=== PATIENT | female | born 1945 | race Caucasian/White ===

== ENCOUNTER → 2017-02-07 | Outpatient (CLI) | payer MEDICARE ==
[~2017-02-07] MED LIST: AMINOPHYLLINE 25 MG/ML, 10ML ONE; AMLO5TAB2 PO; BP MED UNKNOWN; BP MED UNKNOWN PO; CARB200T4 PO; HYDR-3240 PO; LEVO50TA5 PO; LISI40TA PO; NITR100C PO; REGADENOSON 0.4 MG/5 ML SYRINGE ONE; SIMV10TA3 PO
== END | disposition home or self-care (01) ==
LOC: CFH 11:57
PROVIDERS: ATTEND Internal Medicine Cardiovascular Disease
DX: R94.31 Abnormal electrocardiogram [ECG] [EKG] (principal); I10 Essential (primary) hypertension
CPT/HCPCS: 78452; 93017; A9502; J0280; J2785

== ENCOUNTER 2018-02-11 10:12 | Emergency (ER) | payer MEDICARE, MEDICAID ==
[~2018-02-11] VITALS: Ht 157.5 cm; Wt 69.0 kg
[~2018-02-11 10:12] MED LIST changes: -AMINOPHYLLINE 25 MG/ML, 10ML ONE; +ASPI-621 PO; +CARB100T4 PO; +CHOL200059 PO; +HYDR-3307 PO; +LEVO150T5 PO; +LISI-170 PO; -REGADENOSON 0.4 MG/5 ML SYRINGE ONE; +SERT100T5 PO; +SIMV40TA3 PO
[2018-02-11 10:14] VITALS: BP 173/90
[2018-02-11 11:19] LABS: MICROSCOPIC INDICATED
[2018-02-11 11:20] LABS: CULTURE INDICATED? YES
[2018-02-11] MEDS ORDERED: MORPHINE SULFATE 4 MG/ML, 1ML IVPush PRN (11:30)
[2018-02-11] MEDS ORDERED: SODIUM CHLORIDE FLUSH 10ML SYR IVF ONE (11:30)
[2018-02-11] MEDS ORDERED: CEFTRIAXONE PMX 1GM/50ML 50 ML IVPB ONE (11:30)
[2018-02-11] MEDS ORDERED: ONDANSETRON ODT 4 MG PO ONE (11:30)
[2018-02-11] MEDS ORDERED: CEFTRIAXONE PMX 1GM/50ML 50 ML ONE (11:40)
[2018-02-11] MEDS ORDERED: MORPHINE SULFATE 4 MG/ML, 1ML ONE (11:40)
[2018-02-11] MEDS ORDERED: ONDANSETRON 2MG/ML, 2ML ONE (11:40)
[2018-02-11 11:49] LABS: BASOPHILS # (AUTO) 0.02 x10^3/uL (0-0.1); BASOPHILS % (AUTO) 1 % (0-1); EOSINOPHILS # (AUTO) 0.13 x10^3/uL (0-0.4); EOSINOPHILS % (AUTO) 3 % (1-7); LYMPHOCYTES # (AUTO) 1.57 x10^3/uL (1-3.4); LYMPHOCYTES % (AUTO) 38 % (22-44); MD NO; MEAN CORPUSCULAR HEMOGLOBIN 28.6 pg (27.0-34.8); MEAN CORPUSCULAR HGB CONC 32.6 g/dL (32.4-35.8); MEAN CORPUSCULAR VOLUME 87.9 fL (80-100); MEAN PLATELET VOLUME 6.7 fL (7.4-10.4); MONOCYTES # (AUTO) 0.26 x10^3/uL (0.2-0.8); MONOCYTES % (AUTO) 6 % (2-9); NEUTROPHILS # (AUTO) 2.16 x10^3/uL (1.8-6.8); NEUTROPHILS % (AUTO) 52 % (42-75); PLATELET COUNT 282 x10^3/uL (130-400); RED BLOOD COUNT 4.26 x10^6/uL (3.82-5.3); RED CELL DISTRIBUTION WIDTH 14.4 % (9.6-15.2)
[2018-02-11 12:00] LABS: ALANINE AMINOTRANSFERASE 20 U/L (12-78); ALBUMIN 3.6 g/dL (3.4-5.0); ANION GAP 8 mmol/L (5-15); CALCIUM 8.2 mg/dL (8.5-10.1); CHLORIDE 109 mmol/L (98-107)
[2018-02-11 12:02] LABS: ALKALINE PHOSPHATASE 89 U/L (45-117); BILIRUBIN,TOTAL 0.4 mg/dL (0.2-1.0); CREATININE 0.63 mg/dL (0.55-1.02)
[2018-02-11] MEDS ORDERED: OMNIPAQUE 350 MG/ML, 100ML BOTTLE ONE (13:09)
== END 2018-02-11 14:24 | disposition home or self-care (01) ==
LOC: ED 12:40
DX: N30.01 Acute cystitis with hematuria (principal); E03.9 Hypothyroidism, unspecified; I10 Essential (primary) hypertension; Z90.710 Acquired absence of both cervix and uterus
CPT/HCPCS: 36415; 74177; 80053; 81001; 83690; 85025; 87077; 87086; 96374; 96375; 99285; J0696; Q0162; Q9967; 87186

== ENCOUNTER 2019-05-22 11:01 | Emergency (ER) | payer MEDICARE, OTHER ==
[~2019-05-22] VITALS: Ht 154.9 cm; Wt 71.0 kg
[~2019-05-22 11:01] MED LIST changes: +AMLO-150 PO; -AMLO5TAB2 PO; -ASPI-621 PO; +ASPI81TA45 PO; +METH4TAB2 PO; +METH750T2 PO; +SERT100T32 PO; -SERT100T5 PO
[2019-05-22] MEDS ORDERED: ONDANSETRON 2MG/ML, 2ML IVPush ONE ×2 (11:30→13:00)
[2019-05-22] MEDS ORDERED: SODIUM CHLORIDE FLUSH 10ML SYR IVF ONE ×2 (11:30→13:00)
[2019-05-22 12:16] LABS: BASOPHILS % (AUTO) 0 % (0-1); EOSINOPHILS # (AUTO) 0.01 x10^3/uL (0-0.4); EOSINOPHILS % (AUTO) 0 % (1-7); LYMPHOCYTES % (AUTO) 13 % (22-44); MD NO; MEAN CORPUSCULAR HEMOGLOBIN 28.8 pg (27.0-34.8); MEAN CORPUSCULAR HGB CONC 32.4 g/dL (32.4-35.8); MEAN PLATELET VOLUME 7.2 fL (7.4-10.4); MONOCYTES # (AUTO) 0.26 x10^3/uL (0.2-0.8); MONOCYTES % (AUTO) 4 % (2-9); NEUTROPHILS % (AUTO) 82 % (42-75); PLATELET COUNT 283 x10^3/uL (130-400); RED BLOOD COUNT 4.84 x10^6/uL (3.82-5.3); RED CELL DISTRIBUTION WIDTH 14.2 % (9.6-15.2)
--- NOTE | 2019-05-22 12:18 | NUR ---
[employer]: PT TO ROOM FROM LOBBY VIA W/C
[2019-05-22 12:19] LABS: ALANINE AMINOTRANSFERASE 24 U/L (12-78); ALBUMIN 4.3 g/dL (3.4-5.0); ANION GAP 6 mmol/L (5-15); CALCIUM 8.6 mg/dL (8.5-10.1); CHLORIDE 108 mmol/L (98-107)
[2019-05-22 12:22] LABS: ALKALINE PHOSPHATASE 81 U/L (45-117); BILIRUBIN,TOTAL 0.6 mg/dL (0.2-1.0); CREATININE 0.83 mg/dL (0.55-1.02); TOTAL PROTEIN 7.6 g/dL (6.4-8.2)
--- NOTE | 2019-05-22 12:27 | NUR ---
PT STATES SHE WENT TO THE DOCTOR MAY 18 AND PUT ON ANTIBIOTIC FOR UTI. PT STATES SHE TOOK ANTIBIOTIC FOR ONE DAY AND THEN HASN'T SINCE THEN BECAUSE VOMITING AND DIZZY. PT AMBULATED TO BATHROOM WITH ASSISTANCE FOR URINE SAMPLE
[2019-05-22] MEDS ORDERED: ONDANSETRON 2MG/ML, 2ML ONE (12:41)
[2019-05-22] MEDS ORDERED: KETOROLAC 30 MG/1 ML ONE (12:49)
[2019-05-22 12:54] LABS: CULTURE INDICATED? YES; MICROSCOPIC INDICATED
[2019-05-22] MEDS ORDERED: KETOROLAC 30 MG/1 ML IVPush ONE (13:00)
--- NOTE | 2019-05-22 13:19 | NUR ---
AFTER MEDICATED PER ORDERS PT TO CT
[2019-05-22 14:55] VITALS: BP 124/55
[2019-05-22] MEDS ORDERED: CEFTRIAXONE PMX 1GM/50ML 50 ML IV ONE (15:00)
[2019-05-22] MEDS ORDERED: CEFTRIAXONE PMX 1GM/50ML 50 ML ONE (15:07)
--- NOTE | 2019-05-22 15:12 | NUR ---
IV ANTIBIOTICS INFUSING AND PT SIPPING ON WATER
== END 2019-05-22 16:19 | disposition home or self-care (01) ==
LOC: ED 13:55
DX: N30.00 Acute cystitis without hematuria (principal); R11.2 Nausea with vomiting, unspecified; E03.9 Hypothyroidism, unspecified; E78.00 Pure hypercholesterolemia, unspecified; I10 Essential (primary) hypertension; Z87.891 Personal history of nicotine dependence; Z90.710 Acquired absence of both cervix and uterus
CPT/HCPCS: 36415; 74176; 80053; 81001; 83605; 83690; 85025; 87040; 87086; 93005; 96365; 96375; 99284; J0696; J1885; J2405

== ENCOUNTER 2019-12-24 09:10 | Emergency (ER) | payer MEDICARE, OTHER ==
[~2019-12-24] VITALS: Ht 157.5 cm; Wt 71.0 kg
[~2019-12-24 09:10] MED LIST changes: -HYDR-3307 PO; +HYDR-36 PO; +SIMV10TA18 PO; -SIMV10TA3 PO; +SIMV40TA20 PO; -SIMV40TA3 PO
[2019-12-24 09:19] VITALS: BP_DIAS 67
--- NOTE | 2019-12-24 09:34 | NUR ---
74 Y/O FEMALE PRESENTS TO ED WITH C/O ABDOMINAL PAIN. PER PT "I WAS ON ABX, MACROBID, FOR THE LAST WEEK. I FINISHED THEM A WEEK AGO. I CALLED MY DR FRIDAY AND THEY NEVER CALLED ME BACK. I'M JUST IN A LOT OF PAIN STILL." NO C/O N/V/D, TRAUMA, SYNCOPE, CP, SOB.
--- NOTE | 2019-12-24 09:34 | NUR ---
PT AMBULATORY WITH STEADY GAIT TO BATHROOM TO PROVIDE UA
[2019-12-24] MEDS ORDERED: ONDANSETRON ODT 4 MG PO ONE (10:00)
[2019-12-24] MEDS ORDERED: HYDROcodone/APAP 5/325 TABLET PO ONE (10:00)
--- NOTE | 2019-12-24 10:04 | NUR ---
UA SENT TO LAB.
[2019-12-24] MEDS ORDERED: ONDANSETRON ODT 4 MG ONE (10:11)
[2019-12-24] MEDS ORDERED: HYDROcodone/APAP 5/325 TABLET ONE (10:12)
--- NOTE | 2019-12-24 10:27 | NUR ---
PT RESTING ON GURNEY. PT AWARE OF POC. GRANDDAUGHTER BEDSIDE. NO NEEDS REQUESTED AT THIS TIME.
[2019-12-24 10:40] LABS: CULTURE INDICATED? YES; MICROSCOPIC INDICATED
[2019-12-24 10:45] VITALS: BP_SYST 135
--- NOTE | 2019-12-24 10:46 | NUR ---
PT BACK FROM IMAGING.
[2019-12-24 10:50] LABS: BASOPHILS # (AUTO) 0.03 x10^3/uL (0-0.1); BASOPHILS % (AUTO) 1 % (0-1); EOSINOPHILS # (AUTO) 0.09 x10^3/uL (0-0.4); EOSINOPHILS % (AUTO) 2 % (1-7); LYMPHOCYTES # (AUTO) 1.63 x10^3/uL (1-3.4); LYMPHOCYTES % (AUTO) 39 % (22-44); MD NO; MEAN CORPUSCULAR HEMOGLOBIN 28.9 pg (27.0-34.8); MEAN CORPUSCULAR HGB CONC 32.7 g/dL (32.4-35.8); MEAN CORPUSCULAR VOLUME 88.5 fL (80-100); MEAN PLATELET VOLUME 7.4 fL (7.4-10.4); MONOCYTES # (AUTO) 0.27 x10^3/uL (0.2-0.8); MONOCYTES % (AUTO) 7 % (2-9); NEUTROPHILS # (AUTO) 2.14 x10^3/uL (1.8-6.8); NEUTROPHILS % (AUTO) 51 % (42-75); PLATELET COUNT 264 x10^3/uL (130-400); RED BLOOD COUNT 4.35 x10^6/uL (3.82-5.3); RED CELL DISTRIBUTION WIDTH 14.8 % (9.6-15.2)
[2019-12-24 10:57] LABS: CHLORIDE 109 mmol/L (98-107)
[2019-12-24 10:58] LABS: ALBUMIN 3.8 g/dL (3.4-5.0); ANION GAP 5 mmol/L (5-15); CALCIUM 8.9 mg/dL (8.5-10.1)
[2019-12-24 11:01] LABS: ALANINE AMINOTRANSFERASE 24 U/L (12-78); ALKALINE PHOSPHATASE 105 U/L (45-117); BILIRUBIN,TOTAL 0.5 mg/dL (0.2-1.0); CREATININE 0.91 mg/dL (0.55-1.02); TOTAL PROTEIN 7.3 g/dL (6.4-8.2)
[2019-12-24] MEDS ORDERED: CEFTRIAXONE PMX 1GM/50ML 50 ML ONE (11:07)
--- NOTE | 2019-12-24 11:20 | NUR ---
PIV ESTABLISHED. MEDICATION ADMINISTERED PER ORDER. NADN.
[2019-12-24] MEDS ORDERED: CEFTRIAXONE PMX 1GM/50ML 50 ML IV ONE (11:30)
--- NOTE | 2019-12-24 11:49 | NUR ---
Patient/Caregiver given discharge instructions and they have confirmed that they understand the instructions. Patient ambulatory with steady gait. PIV D/C WITH TIP INTACT. PRESSURE DRESSING APPLIED. PT LEFT WITH ALL PERSONAL BELONGINGS.
== END 2019-12-24 11:51 | disposition home or self-care (01) ==
LOC: ED 11:45
DX: N10 Acute pyelonephritis (principal); R10.30 Lower abdominal pain, unspecified; I10 Essential (primary) hypertension; E78.00 Pure hypercholesterolemia, unspecified; E03.9 Hypothyroidism, unspecified
CPT/HCPCS: 36415; 74176; 80053; 81001; 83690; 85025; 87086; 96365; 99284; J0696; Q0162

== ENCOUNTER 2020-06-10 21:44 | Inpatient (IN) | payer MEDICARE ==
[~2020-06-10] VITALS: Ht 157.5 cm; Wt 76.2 kg
[~2020-06-10 21:44] MED LIST changes: +HYDR-3246 PO; -HYDR-36 PO
--- NOTE | 2020-06-10 21:47 | NUR ---
PT BIB [facility] AFTER PT WAS WASHING HER BATH MAT AND WHILE SENT OVER FELT HER L HIP POP OUT AND THEN COULD NOT WALK. PT SOMETIMES USES A CANE BASELINE. PT DENIES ANY TRAUMA TO AREA, DENIES ABILITY TO WALK. STATES PAIN IS ALL OVER HIP RUNNING DOWN LEG AND UP BACK. SENSATION AND GROSS NEURO INTACT, LIMITED RANGE OF MOTION SECONDARY TO PAIN. PT NAD, P/W/D. CMS INTACT. WCTM. FAIZAN AGUIRRE AT BS FOR EVAL AND POC PT PLACED ON BP/SPO2 MONITORING
[2020-06-10 22:13] LABS: BASOPHILS # (AUTO) 0.02 x10^3/uL (0-0.1); BASOPHILS % (AUTO) 1 % (0-1); EOSINOPHILS # (AUTO) 0.12 x10^3/uL (0-0.4); EOSINOPHILS % (AUTO) 2 % (1-7); LYMPHOCYTES # (AUTO) 1.98 x10^3/uL (1-3.4); LYMPHOCYTES % (AUTO) 38 % (22-44); MD NO; MEAN CORPUSCULAR HEMOGLOBIN 28.6 pg (27.0-34.8); MEAN CORPUSCULAR HGB CONC 32.6 g/dL (32.4-35.8); MEAN PLATELET VOLUME 6.8 fL (7.4-10.4); MONOCYTES # (AUTO) 0.25 x10^3/uL (0.2-0.8); MONOCYTES % (AUTO) 5 % (2-9); NEUTROPHILS # (AUTO) 2.91 x10^3/uL (1.8-6.8); NEUTROPHILS % (AUTO) 55 % (42-75); PLATELET COUNT 307 x10^3/uL (130-400); RED BLOOD COUNT 4.51 x10^6/uL (3.82-5.3); RED CELL DISTRIBUTION WIDTH 14.8 % (9.6-15.2)
--- NOTE | 2020-06-10 22:21 | NUR ---
PT TO RADIOLOGY VIA CORIE BUSBY, CONDITION UNCHANGED.
[2020-06-10 22:25] LABS: ALBUMIN 3.8 g/dL (3.4-5.0); ANION GAP 8 mmol/L (5-15); CALCIUM 8.2 mg/dL (8.5-10.1); CHLORIDE 111 mmol/L (98-107)
[2020-06-10] MEDS ORDERED: MORPHINE SULFATE 4 MG/ML, 1ML ONE ×2 (22:35→23:41)
[2020-06-10] MEDS: MORPHINE SULFATE 4 MG/ML, 1ML IVPush PRN ×2 (22:40→23:45)
--- NOTE | 2020-06-10 22:52 | NUR ---
PT MEDICATED PER MAR FOR PAIN. RESTING IN [facility], NO CHANGE IN CONDITION, WCTM.
--- NOTE | 2020-06-10 23:30 | NUR ---
PT TO CT VIA GURNEY, APPEARS COMFORTABLE, NAD, VSS.
--- NOTE | 2020-06-10 23:40 | NUR ---
PT BACK FROM CT, STATES PAIN IS STILL BAD, PT MEDICATED PER MAR, VSS. WCTM. WAITING FOR CT RESULTS.
--- NOTE | 2020-06-11 00:25 | NUR ---
RN CALLED CT TO FOLLOW UP ON REPORT. PT RESTING IN [facility], STATES PAIN IS DECREASED. WCBRYCE. CORIE.
--- NOTE | 2020-06-11 01:15 | NUR ---
RN ATTEMPTED TO ROAD TEST PT, PT STILL UNABLE TO STAND AND STILL IN PAIN WHEN THE LEFT HIP IS MOVED OR TOUCHED. GASTON AGUIRRE AWARE AND AT BS FOR EVAL AND POC. CORIE WHITE.
[2020-06-11] MEDS ORDERED: MORPHINE SULFATE 4 MG/ML, 1ML ONE (01:24)
[2020-06-11] MEDS ORDERED: MORPHINE SULFATE 4 MG/ML, 1ML IVPush PRN (01:30)
[2020-06-11] MEDS ORDERED: KETOROLAC 30 MG/1 ML IVPush ONE (02:00)
[2020-06-11 02:29] LABS: HCT (SEDRATE) 39.5 % (34.6-47.8)
--- NOTE | 2020-06-11 02:30 | NUR ---
LATE ENTRY: PT TO MRI VIA CORIE BUSBY, P/W/D.
--- NOTE | 2020-06-11 03:50 | NUR ---
late entr: pt back from MRI, resting in gurney, appears comfortable, states pain is tolerable, NAD, waiting for MRI results. WCTM.
--- NOTE | 2020-06-11 04:15 | NUR ---
pt resting in gurney, eyes closed, lights dimmed for comfort, waiting for MRI results. WCTM.
[2020-06-11] MEDS ORDERED: OXYcodone IR 5MG TABLET ONE (05:03)
[2020-06-11] MEDS: OXYcodone IR 5MG TABLET PO PRN ×5 (05:05→21:26)
--- NOTE | 2020-06-11 05:10 | NUR ---
ED, PT SON, CONTACT INFO:
--- NOTE | 2020-06-11 05:10 | NUR ---
REPORT TO BRADFORD GARCIA, PT CARE TO BE TRANSFERRED UPON ARRIVAL TO THE FLOOR. PT NAD, CONDITION UNCHANGED, MEDICATED PER MAR
[2020-06-11 05:33] VITALS: BP 136/75
[2020-06-11] MEDS ORDERED: methylPREDNISolone SOD SUCC 40 MG/ML IV SCH (06:00)
[2020-06-11] MEDS ORDERED: MELATONIN 5 MG TABLET PO PRN (06:00)
[2020-06-11] MEDS ORDERED: BISACODYL 10 MG SUPP PR PRN (06:00)
[2020-06-11] MEDS ORDERED: ACETAMINOPHEN 325 MG TABLET PO PRN (06:00)
[2020-06-11] MEDS ORDERED: HYDROmorphone 2 MG/ML, 1ML IVPush PRN (06:00)
[2020-06-11] MEDS ORDERED: DOCUSATE 100 MG CAPSULE PO PRN (06:00)
[2020-06-11] MEDS ORDERED: ONDANSETRON 2MG/ML, 2ML IVPush PRN (06:00)
[2020-06-11] MEDS ORDERED: POLYETHYLENE GLYCOL 17 GM PACKET PO PRN (06:00)
[2020-06-11] MEDS: LEVOTHYROXINE 150 MCG TABLET PO SCH (06:09)
[2020-06-11 07:45] VITALS: BP 133/73
[2020-06-11] MEDS: CARBAMAZEPINE 200 MG TABLET PO SCH ×2 (08:02→21:26)
[2020-06-11] MEDS: SENNA/DOCUSATE TABLET PO SCH (08:06)
[2020-06-11] MEDS: FAMOTIDINE 20 MG TABLET PO SCH ×2 (08:06→21:25)
[2020-06-11] MEDS: ASPIRIN 81 MG TABLET EC PO SCH (08:07)
[2020-06-11] MEDS: AMLODIPINE 5 MG TABLET PO SCH (08:07)
[2020-06-11] MEDS: CHOLECALCIFEROL 1,000 UNIT TABLET PO SCH (08:08)
[2020-06-11] MEDS: LISINOPRIL 20 MG TABLET PO SCH (08:08)
[2020-06-11] MEDS: SERTRALINE 100MG TABLET PO SCH (08:08)
[2020-06-11] MEDS ORDERED: BUSP7.5T5 PO (15:17)
[2020-06-11 15:33] VITALS: BP 147/56
[2020-06-11 19:28] VITALS: BP 144/78
[2020-06-12 00:28] VITALS: BP 126/62
[2020-06-12] MEDS: OXYcodone IR 5MG TABLET PO PRN ×5 (03:17→21:47)
[2020-06-12 04:53] LABS: BASOPHILS # (AUTO) 0.02 x10^3/uL (0-0.1); BASOPHILS % (AUTO) 1 % (0-1); EOSINOPHILS # (AUTO) 0.02 x10^3/uL (0-0.4); EOSINOPHILS % (AUTO) 1 % (1-7); LYMPHOCYTES # (AUTO) 0.98 x10^3/uL (1-3.4); LYMPHOCYTES % (AUTO) 28 % (22-44); MD NO; MEAN CORPUSCULAR HEMOGLOBIN 28.5 pg (27.0-34.8); MEAN CORPUSCULAR HGB CONC 31.9 g/dL (32.4-35.8); MEAN PLATELET VOLUME 7.2 fL (7.4-10.4); MONOCYTES # (AUTO) 0.11 x10^3/uL (0.2-0.8); MONOCYTES % (AUTO) 3 % (2-9); NEUTROPHILS # (AUTO) 2.41 x10^3/uL (1.8-6.8); NEUTROPHILS % (AUTO) 68 % (42-75); PLATELET COUNT 285 x10^3/uL (130-400); RED BLOOD COUNT 4.47 x10^6/uL (3.82-5.3); RED CELL DISTRIBUTION WIDTH 14.9 % (9.6-15.2)
[2020-06-12 04:54] LABS: ANION GAP 6 mmol/L (5-15); CALCIUM 8.5 mg/dL (8.5-10.1); CHLORIDE 106 mmol/L (98-107); CREATININE 0.75 mg/dL (0.55-1.02)
[2020-06-12 05:04] LABS: FREE T4 (FREE THYROXINE) 0.83 ng/dL (0.76-1.46)
[2020-06-12] MEDS: LEVOTHYROXINE 150 MCG TABLET PO SCH (06:28)
[2020-06-12 06:36] VITALS: BP 161/81
[2020-06-12] MEDS ORDERED: KETOROLAC 30 MG/1 ML IM PRN (07:30)
[2020-06-12] MEDS: CARBAMAZEPINE 200 MG TABLET PO SCH ×2 (07:38→21:46)
[2020-06-12] MEDS: SENNA/DOCUSATE TABLET PO SCH (07:39)
[2020-06-12] MEDS: SERTRALINE 100MG TABLET PO SCH (07:39)
[2020-06-12] MEDS: CHOLECALCIFEROL 1,000 UNIT TABLET PO SCH (07:40)
[2020-06-12] MEDS: AMLODIPINE 5 MG TABLET PO SCH (07:40)
[2020-06-12] MEDS: ASPIRIN 81 MG TABLET EC PO SCH (07:40)
[2020-06-12] MEDS: FAMOTIDINE 20 MG TABLET PO SCH ×2 (07:40→21:46)
[2020-06-12] MEDS: LISINOPRIL 20 MG TABLET PO SCH (07:43)
[2020-06-12] MEDS ORDERED: KETOROLAC 30 MG/1 ML IV PRN (10:30)
[2020-06-12 12:43] VITALS: BP 125/74
[2020-06-12 18:53] VITALS: BP 154/76
[2020-06-13 00:25] VITALS: BP 139/60
[2020-06-13] MEDS: LEVOTHYROXINE 150 MCG TABLET PO SCH (05:18)
[2020-06-13] MEDS: OXYcodone IR 5MG TABLET PO PRN ×2 (05:18→11:42)
[2020-06-13 07:16] VITALS: BP 152/75
[2020-06-13] MEDS: CHOLECALCIFEROL 1,000 UNIT TABLET PO SCH (08:03)
[2020-06-13] MEDS: SENNA/DOCUSATE TABLET PO SCH (08:03)
[2020-06-13] MEDS: SERTRALINE 100MG TABLET PO SCH (08:03)
[2020-06-13] MEDS: CARBAMAZEPINE 200 MG TABLET PO SCH (08:04)
[2020-06-13] MEDS: FAMOTIDINE 20 MG TABLET PO SCH (08:04)
[2020-06-13] MEDS: AMLODIPINE 5 MG TABLET PO SCH (08:05)
[2020-06-13] MEDS: ASPIRIN 81 MG TABLET EC PO SCH (08:05)
[2020-06-13] MEDS: LISINOPRIL 20 MG TABLET PO SCH (08:05)
[2020-06-13] MEDS ORDERED: SENN-193 PO (09:35)
[2020-06-13] MEDS ORDERED: OXYC5TAB3 PO (09:35)
[2020-06-13 11:49] VITALS: BP 163/94
== END 2020-06-13 15:01 | disposition home or self-care (01) | DRG 552 ==
LOC: ED 22:14 → EDIP 06-11 04:26 → 3N 06-11 05:19
PROVIDERS: ADMIT Internal Medicine; ATTEND Family Medicine
DX: M51.16 Intervertebral disc disorders with radiculopathy, lumbar region (principal); M48.061 Spinal stenosis, lumbar region without neurogenic claudication; X50.1XXA Overexertion from prolonged static or awkward postures, initial encounter; Z88.0 Allergy status to penicillin; Z88.8 Allergy status to other drugs, medicaments and biological substances; E03.9 Hypothyroidism, unspecified; E78.00 Pure hypercholesterolemia, unspecified; F39 Unspecified mood [affective] disorder; G40.909 Epilepsy, unspecified, not intractable, without status epilepticus; G89.29 Other chronic pain; I10 Essential (primary) hypertension; M16.10 Unilateral primary osteoarthritis, unspecified hip; M47.26 Other spondylosis with radiculopathy, lumbar region; Z87.891 Personal history of nicotine dependence; Z90.710 Acquired absence of both cervix and uterus; E66.9 Obesity, unspecified; Z71.3 Dietary counseling and surveillance; Z68.30 Body mass index [BMI] 30.0-30.9, adult; M70.62 Trochanteric bursitis, left hip
CPT/HCPCS: 36415; 72148; 72170; 80048; 82040; 84439; 84443; 85025; 85651; 86140; 93005; G0378; J1885; J2405; J2270; J2920; J7512